=== PATIENT | female | born 1990 | race Caucasian/White ===

== ENCOUNTER 2016-07-06 21:30 | Emergency (ER) | payer OTHER ==
[2016-07-06] MEDS ORDERED: IBUPROFEN 600 MG TABLET (FP) PO ONE ×2 (21:47→22:51)
--- NOTE | 2016-07-06 21:51 | PDOC ---
Rapid Medical Evaluation Chief Complaint: Toothache Time Seen by Provider: 07/06/16 21:45 Medical Evaluation: Allergies Allergy/AdvReac Type Severity Reaction Status Date / Time No Known Allergies Allergy Verified 07/06/16 21:43 Vital Signs Temp Pulse Resp BP Pulse Ox 98.7 F 61 18 110/57 99 07/06/16 21:43 07/06/16 21:43 07/06/16 21:43 07/06/16 21:43 07/06/16 21:43 07/06/16 21:49 RME Note: I have performed a brief, in-person evaluation of this patient . This patient presents with CC: severe tooth pain tonight Pertinent PE findings are: tender to area lateral upper center incisor I have ordered: motrin 600mg The patient will proceed to ED for further evaluation.
[2016-07-06 22:12] VITALS: BP 110/57; PULSE 61; TEMP 98.7; BMI 21.6
[2016-07-06] MEDS ORDERED: OXYCODONE/APAP 5/325MG COMBO TABLET PO ONE (23:09)
--- NOTE | 2016-07-06 23:15 | PDOC ---
History of Present Illness - History of Present Illness Initial Comments: 07/06/16 23:15 The patient is a 26 year old female, with no significant past medical history, who presents to the emergency department with left maxillary quadrant pain radiating to her left yazidi, left ear and left jaw since 4:30 PM today. She states she can not localize the pain to one specific tooth because she feels pain to both the upper and lower left posterior teeth. She reports drinking cold water this evening which exacerbated her pain. She denies chest pain, shortness of breath, headache and dizziness. She denies fever, chills, nausea, vomit, diarrhea and constipation. She denies dysuria, frequency, urgency and hematuria. Allergies: NKDA <Lori Huerta - Last Filed: 07/06/16 23:15> <Laney Holden - Last Filed: 07/06/16 23:55> - General Chief Complaint: Toothache Stated Complaint: LEFT SIDE FACIAL PAIN Time Seen by Provider: 07/06/16 21:45 Past History <Lori Huerta - Last Filed: 07/06/16 23:15> - Past Medical History Other medical history: denies - Immunization History Immunization Up to Date: Yes - Psycho/Social/Smoking Cessation Hx Suicidal Ideation: No Smoking History: Current every day smoker Number of Cigarettes Smoked Daily: 5 Information on smoking cessation initiated: No Hx Alcohol Use: No Drug/Substance Use Hx: No Substance Use Type: None <Laney Holden - Last Filed: 07/06/16 23:55> - Past Medical History Allergies/Adverse Reactions: Allergies Allergy/AdvReac Type Severity Reaction Status Date / Time No Known Allergies Allergy Verified 07/06/16 21:43 Home Medications: Ambulatory Orders Ibuprofen [Motrin -] 600 mg PO TID PRN #21 tablet 07/06/16 Review of Systems - Review of Systems Able to Perform ROS?: Yes Comments:: 07/06/16 23:16 CONSTITUTIONAL: Absent: fever, no chills, no fatigue EYES: Absent: visual changes ENT: (+) left sided dental pain. Absent: ear pain, no sore throat CARDIOVASCULAR: Absent: chest pain, no palpitations RESPIRATORY: Absent: cough, no SOB GI: Absent: abdominal pain, no nausea, no vomiting, no constipation, no diarrhea GENITOURINARY: Absent: dysuria, no frequency, no hematuria MUSCULOSKELETAL: Absent: back pain, no arthralgia, no myalgia SKIN: Absent: rash NEURO: Absent: headache <Lori Huerta - Last Filed: 07/06/16 23:15> *Physical Exam - Vital Signs Last Vital Signs Temp Pulse Resp BP Pulse Ox 98.7 F 61 18 110/57 99 07/06/16 21:43 07/06/16 21:43 07/06/16 21:43 07/06/16 21:43 07/06/16 21:43 - Physical Exam Comments: 07/06/16 23:17 GENERAL: Well-appearing, well-nourished. No apparent distress. HEENT: (+) sensitivity to percussion at 2nd premolar and 1st premolar, buccal vestibule reproducible pain, amalgam, #16 and 17 fully erupted, No sign of ludwigs, no fluctuance, no lesions, Normocephalic, atraumatic. PERRL, EOM intact. SKIN: Warm, dry. No rash. No lesions. NEUROLOGICAL: No focal neurological deficits. <Lori Huerta - Last Filed: 07/06/16 23:15> - Vital Signs Last Vital Signs Temp Pulse Resp BP Pulse Ox 98.7 F 61 18 110/57 99 07/06/16 21:43 07/06/16 21:43 07/06/16 21:43 07/06/16 21:43 07/06/16 21:43 <Laney Holden - Last Filed: 07/06/16 23:55> ED Treatment Course - ADDITIONAL ORDERS Additional order review: Laboratory Results 07/06/16 21:50 Urine HCG, Qual Negative - Medications Given in the ED: ED Medications Discontinued Medications Generic Name Dose Route Start Last Admin Trade Name Freq PRN Reason Stop Dose Admin Ibuprofen 600 mg 07/06/16 21:47 07/06/16 22:52 Motrin - PO 07/06/16 21:48 600 mg ONCE ONE Administration <Lori Huerta - Last Filed: 07/06/16 23:15> - ADDITIONAL ORDERS Additional order review: Laboratory Results 07/06/16 21:50 Urine HCG, Qual Negative - Medications Given in the ED: ED Medications Discontinued Medications Generic Name Dose Route Start Last Admin Trade Name Freq PRN Reason Stop Dose Admin Ibuprofen 600 mg 07/06/16 21:47 07/06/16 22:52 Motrin - PO 07/06/16 21:48 600 mg ONCE ONE Administration <Laney Holden - Last Filed: 07/06/16 23:55> *DC/Admit/Observation/Transfer - Attestations Scribe Attestion: 07/06/16 23:19 Documentation prepared by Lori Huerta, acting as medical engineer for Laney Holden MD <Lori Huerta - Last Filed: 07/06/16 23:15> <Laney Holden - Last Filed: 07/06/16 23:55> Diagnosis at time of Disposition: Toothache - Discharge Dispostion Disposition: HOME Condition at time of disposition: Stable - Prescriptions Prescriptions: Ibuprofen [Motrin -] 600 mg PO TID PRN #21 tablet PRN Reason: For Toothache - Patient Instructions Printed Discharge Instructions: DI for Dental Pain Additional Instructions: please call your dentist and make an appointment this week
[2016-07-06] MEDS ORDERED: OXYCODONE/APAP 5/325MG COMBO TABLET ONE (23:19)
== END 2016-07-07 00:04 | disposition home or self-care (01) ==
LOC: JER 21:30
DX: K08.89 Other specified disorders of teeth and supporting structures (principal); F17.210 Nicotine dependence, cigarettes, uncomplicated
CPT/HCPCS: 84703; 99282-25

== ENCOUNTER 2017-08-25 11:49 | Emergency (ER) | payer OTHER ==
[2017-08-25 12:22] VITALS: BP 120/74; PULSE 72; TEMP 98.2; BMI 23.1
--- NOTE | 2017-08-25 13:42 | PDOC ---
History of Present Illness - General Chief Complaint: Cold Symptoms Stated Complaint: CONGESTION, FEVER Time Seen by Provider: 08/25/17 13:26 History Source: Patient Exam Limitations: No Limitations - History of Present Illness Initial Comments: 08/25/17 13:43 This is a 27-year-old woman without significant past medical history who presents emergency Department with 4 days of fevers, moist cough, sore throat, nasal congestion. Patient states her symptoms started on Tuesday 08/22. She's been trying [id number] nasal decongestants and antipyretics with good relief. Patient states she had one episode of vomiting this morning which was nonbilious nonbloody. Patient states she recently quit smoking approximately 2 months ago. Past History - Past Medical History Allergies/Adverse Reactions: Allergies Allergy/AdvReac Type Severity Reaction Status Date / Time No Known Allergies Allergy Verified 08/25/17 12:19 Home Medications: Ambulatory Orders NK [No Known Home Medication] 08/25/17 COPD: No DVT: No Dementia: No - Immunization History Immunization Up to Date: Yes - Suicide/Smoking/Psychosocial Hx Smoking History: Former smoker Have you smoked in the past 12 months: No Number of Cigarettes Smoked Daily: 5 If you are a former smoker, when did you quit?: 2M Information on smoking cessation initiated: No Hx Alcohol Use: No Drug/Substance Use Hx: No Substance Use Type: None Review of Systems - Review of Systems Able to Perform ROS?: Yes Is the patient limited [place] proficient: No Constitutional: Yes: See HPI HEENTM: Yes: See HPI Respiratory: Yes: See HPI Cardiac (ROS): No: Symptoms Reported ABD/GI: Yes: See HPI : No: Symptoms Reported Musculoskeletal: No: Symptoms Reported Integumentary: No: Symptoms Reported Neurological: No: Symptoms reported Endocrine: No: Symptoms Reported Hematologic/Lymphatic: No: Symptoms Reported *Physical Exam - Vital Signs Last Vital Signs Temp Pulse Resp BP Pulse Ox 98.2 F 72 18 120/74 99 08/25/17 12:19 08/25/17 12:19 08/25/17 12:19 08/25/17 12:19 08/25/17 12:19 - Physical Exam General Appearance: Yes: Appropriately Dressed. No: Apparent Distress HEENT: positive: Pharynx Normal, Pharyngeal Erythema, Nasal Congestion, Sinus Tenderness, Other (Bilateral retractions noted to TMs). negative: Tonsillar Exudate, Tonsillar Erythema, Rhinorrhea, TM Bulging, TM Dull, TM Erythema Neck: positive: Trachea midline, Supple Respiratory/Chest: positive: Lungs Clear, Normal Breath Sounds. negative: Respiratory Distress, Accessory Muscle Use Cardiovascular: positive: Regular Rhythm, Regular Rate, S1, S2. negative: Murmur Gastrointestinal/Abdominal: positive: Normal Bowel Sounds, Soft. negative: Tender Musculoskeletal: positive: Normal Inspection. negative: CVA Tenderness Extremity: positive: Normal Capillary Refill, Normal Inspection, Normal Range of Motion Integumentary: positive: Normal Color, Dry, Warm Neurologic: positive: Alert, Normal Response Medical Decision Making - Medical Decision Making 08/25/17 13:46 A/P: 27-year-old female without medical history with 4 days of upper respiratory symptoms TMs with retractions noted bilaterally Maxillary sinus tenderness to palpation Oropharynx with erythema 2+ tonsils present no erythema or exudate Lungs clear to auscultation bilaterally Abdomen soft nontender nondistended. Symptoms consistent with upper respiratory illness. Given symptoms started 4 days ago I will defer influenza testing at this time is treatment will not change. This is explained to the patient who verbalized understanding. Patient instructed to continue symptomatically treatment and to follow-up with Dr. mancilla symptoms are not resolving within the next 5 days. *DC/Admit/Observation/Transfer Diagnosis at time of Disposition: Upper respiratory infection, viral - Discharge Dispostion Disposition: HOME Condition at time of disposition: Stable Admit: No - Referrals Referrals: Tito Mancilla MD [Staff Physician] - - Patient Instructions Printed Discharge Instructions: DI for Viral Upper Respiratory Infection -- Adult Additional Instructions: Rest, drink lots of fluids: Teas, water, soups, Pedialyte Saltwater gargles Steamy showers/seem to face break up mucus Avoid contact with others until fevers and cough resolved Lots of handwashing and good hygiene Continue [id number] medications for symptomatic relief Tylenol or Motrin for fever and pain Followup with private physician in one to 2 days as needed Return to emergency department for worsened symptoms, fevers, dehydration - Post Discharge Activity Forms/Work/School Notes: Back to Work
== END 2017-08-25 13:46 | disposition home or self-care (01) ==
LOC: JERFT 11:49
DX: J06.9 Acute upper respiratory infection, unspecified (principal); B97.89 Other viral agents as the cause of diseases classified elsewhere
CPT/HCPCS: 99281-25

== ENCOUNTER 2017-10-27 22:54 | Emergency (ER) | payer OTHER ==
[2017-10-27 23:13] VITALS: BP 115/59; PULSE 63; TEMP 97.8; BMI 23.6
--- NOTE | 2017-10-27 23:53 | PDOC ---
History of Present Illness - General History Source: Patient Exam Limitations: No Limitations - History of Present Illness Initial Comments: 10/28/17 00:13 The patient is a 27 year old female, with no significant past medical history, who presents to the ED complaining of chest pain and cough over the past 2 days. She describes her chest pain as ranging from mild to moderate, with radiation to the left breast. She denies any modifying factors. She notes that she works in the [place] and was off for the past 2 days, when she developed this pain. She denies any discharge from the nipple. She notes that sometimes she feels as if her heart is racing. She reports a dry cough for the past week. The patient denies shortness of breath, headache or dizziness. Denies fever, chills, nausea, vomiting, diarrhea and constipation. Denies dysuria, frequency, urgency and hematuria. LMP: 2 weeks ago Allergies: None Past surgical history: None reported Social History: Cigarette use (10 daily). No drug use reported <Theron Salomon - Last Filed: 10/28/17 00:12> <Haylee Holt - Last Filed: 10/28/17 01:36> - General Chief Complaint: Chest Pain Stated Complaint: CHEST PAIN Time Seen by Provider: 10/27/17 23:39 Past History <Theron Salomon - Last Filed: 10/28/17 00:12> - Past Medical History COPD: No DVT: No Dementia: No - Immunization History Immunization Up to Date: Yes - Suicide/Smoking/Psychosocial Hx Smoking History: Current every day smoker Have you smoked in the past 12 months: No Number of Cigarettes Smoked Daily: 5 If you are a former smoker, when did you quit?: 2M Information on smoking cessation initiated: Yes 'Breaking Loose' booklet given: 10/27/17 Hx Alcohol Use: No Drug/Substance Use Hx: No Substance Use Type: None <Haylee Holt - Last Filed: 10/28/17 01:36> - Past Medical History Allergies/Adverse Reactions: Allergies Allergy/AdvReac Type Severity Reaction Status Date / Time No Known Allergies Allergy Verified 08/25/17 12:19 Home Medications: Ambulatory Orders Albuterol Sulfate Inhaler - [Ventolin HFA Inhaler -] 1 - 2 inh PO QID PRN #1 inhaler 10/28/17 Ibuprofen [Motrin -] 600 mg PO TID PRN #21 tablet 10/28/17 Inhaler, Assist Devices [Space Chamber Plus] 1 each QID PRN #1 spacer Review of Systems - Review of Systems Able to Perform ROS?: Yes Comments:: 10/28/17 00:13 GENERAL/CONSTITUTIONAL: No fever or chills. No weakness. HEAD, EYES, EARS, NOSE AND THROAT: No change in vision. No ear pain or discharge. No sore throat. GASTROINTESTINAL: No nausea, vomiting, diarrhea or constipation. GENITOURINARY: No dysuria, frequency, or change in urination. CARDIOVASCULAR: (+) Chest pain. No shortness of breath. RESPIRATORY: (+) Cough. No wheezing, or hemoptysis. MUSCULOSKELETAL: No joint or muscle swelling or pain. No neck or back pain. SKIN: No rash NEUROLOGIC: No headache, vertigo, loss of consciousness, or change in strength/ sensation. ENDOCRINE: No increased thirst. No abnormal weight change. HEMATOLOGIC/LYMPHATIC: No anemia, easy bleeding, or history of blood clots. ALLERGIC/IMMUNOLOGIC: No hives or skin allergy. <Theron Salomon - Last Filed: 10/28/17 00:12> *Physical Exam - Vital Signs Last Vital Signs Temp Pulse Resp BP Pulse Ox 97.8 F 63 20 115/59 100 10/27/17 23:10 10/27/17 23:10 10/27/17 23:10 10/27/17 23:10 10/27/17 23:10 - Physical Exam Comments: 10/28/17 00:12 Constitutional: Awake, alert, oriented. No acute distress. Head: Normocephalic. Atraumatic Eyes: PERRL. EOMI. Conjunctivae are not pale. ENT: Mucous membranes are moist and intact. Posterior pharynx without exudates or erythema. Uvula midline. Neck: Supple. Full ROM. No lymphadenopathy. No thyromegaly. Cardiovascular: Regular rate. Regular rhythm. S1, S2 regular. Distal pulses are 2+ and symmetric. Pulmonary/Chest: (+) Anterior chest wall tenderness producing her pain. Soft expiratory wheezing on the right base. Abdominal: Soft and non-distended. There is no tenderness. No rebound, guarding or rigidity. No organomegaly. No palpable masses. Good bowel sounds. Back: No CVA tenderness. Musculoskeletal: No edema. No cyanosis. No clubbing. Full range of motion in all extremities. Nocalf tenderness. Radial/pedal pulses are intact and 2+ bilaterally Skin: (+) Pierced nipples, upper right eye piercing and upper lip piercing. Skin is warm and dry. No petechiae. No purpura. Neurological: Alert and oriented to person, place, and time. Cranial nerves II -XII are grossly intact. Normal speech. Strength is grossly symmetric. No sensory deficits. Psychiatric: Good eye contact. Normal interaction, affect and behavior. <Theron Salomon - Last Filed: 10/28/17 00:12> - Vital Signs Last Vital Signs Temp Pulse Resp BP Pulse Ox 97.8 F 63 20 115/59 100 10/27/17 23:10 10/27/17 23:10 10/27/17 23:10 10/27/17 23:10 10/27/17 23:10 <Haylee Holt - Last Filed: 10/28/17 01:36> Heart Score/ECG Review - ECG Intrepretation Comment:: 10/28/17 00:10 sinus at 65, nl axis, nl interval, no acute st/t wave findings <Haylee Holt - Last Filed: 10/28/17 01:36> ED Treatment Course - LABORATORY CBC & Chemistry Diagram: 10/28/17 00:35 10/28/17 00:35 <Haylee Holt - Last Filed: 10/28/17 01:36> Medical Decision Making - Medical Decision Making 10/28/17 00:05 a/p: 27yo female with R sided anterior chest wall ttp -suspect pleurisy from recent influenza vs costocondritis -will send labs, pt with palpitations - will send dimer and tsh -will monitor and reassess -iv toradol if hcg negative -pt is nontoxic in appearance. 10/28/17 01:29 dimer negative tsh wnl labs reviewed and h/h stable mildly elevated wbc - without a shift 10/28/17 01:30 pt states feeling better 10/28/17 01:32 cxr clear suspect pleurisy with anterior chest wall pain neb improved breathing - no longer wheezing toradol improved cp. will give work note stable for dc to home will send rx for albuterol and motrin to pharmacy <Haylee Holt - Last Filed: 10/28/17 01:36> *DC/Admit/Observation/Transfer - Attestations Scribe Attestion: 10/28/17 00:12 Documentation prepared by Theron Salomon, acting as medical planner for Haylee Holt DO <Theron Salomon - Last Filed: 10/28/17 00:12> - Discharge Dispostion Decision to Admit order: No - Attestations Physician Attestion: 10/28/17 01:36 I, Dr. Haylee Holt DO, attest that this document has been prepared under my direction and personally reviewed by me in its entirety. I further attest, that it accurately reflects all work, treatment, procedures and medical decision -making performed by me. <Haylee Holt - Last Filed: 10/28/17 01:36> Diagnosis at time of Disposition: Anterior chest wall pain - Discharge Dispostion Disposition: HOME Condition at time of disposition: Stable - Prescriptions Prescriptions: Albuterol Sulfate Inhaler - [Ventolin HFA Inhaler -] 1 - 2 inh PO QID PRN #1 inhaler PRN Reason: Shortness Of Breath Ibuprofen [Motrin -] 600 mg PO TID PRN #21 tablet PRN Reason: Pain Inhaler, Assist Devices [Space Chamber Plus] 1 each MC QID PRN #1 spacer PRN Reason: Shortness Of Breath - Referrals Referrals: Tito Barton MD [Staff Physician] - - Patient Instructions Printed Discharge Instructions: DI for Atypical Chest Pain Additional Instructions: Please take all medication as prescribed. Please return to the ED with any further concerns or complaints. Please follow up with your PMD in 2-3 days. - Post Discharge Activity Forms/Work/School Notes: Back to Work
[2017-10-27] MEDS ORDERED: ALBUTEROL SO4 2.5/IPRATROPIUM 0.5 INH SOL 3 ML VIAL.NEB. NEB ONE (23:54)
[2017-10-27] MEDS ORDERED: SODIUM CHLORIDE 0.9% 1000 ML INFUS.BAG IV ONE (23:54)
[2017-10-27] MEDS ORDERED: KETOROLAC TROMETHAMINE 30 MG/1 ML VIAL IVPUSH ONE (23:54)
[2017-10-28] MEDS ORDERED: ACETAMINOPHEN 1000 MG/100 ML VIAL (NON FORMULARY) IVPB ONE (00:32)
[2017-10-28 00:46] LABS: BASO % 0.4 % (0-2.0); EOS % 0.8 % (0-4.5); HEMATOCRIT 40.1 % (32.4-45.2); HEMOGLOBIN 13.1 GM/dL (10.7-15.3); LYMPH % 27.1 % (8-40); MCH 29.9 pg (25.7-33.7); MCHC 32.6 g/dl (32.0-36.0); MEAN CELL VOLUME 91.8 fl (80-96); MEAN PLT VOLUME 8.5 fl (7.5-11.1); MONO % 9.3 % (3.8-10.2); NEUT % 62.4 % (42.8-82.8); PLATELET COUNT 234 K/MM3 (134-434); RBC 4.37 M/mm3 (3.60-5.2); RDW 13.3 % (11.6-15.6); WHITE BLOOD COUNT 11.1 K/mm3 (4.0-10.0)
[2017-10-28] MEDS ORDERED: ALBUTEROL SO4 2.5/IPRATROPIUM 0.5 INH SOL 3 ML VIAL.NEB. NEB ONE (00:55)
[2017-10-28] MEDS ORDERED: ACETAMINOPHEN INJECTION 100 ML IVPB ONE (00:56)
[2017-10-28] MEDS ORDERED: KETOROLAC TROMETHAMINE 30 MG/1 ML VIAL ONE (00:56)
[2017-10-28 01:16] LABS: ALBUMIN 4.2 g/dl (3.4-5.0); ANION GAP 7 (8-16); BILIRUBIN,TOTAL 0.4 mg/dL (0.2-1.0); BLOOD UREA NITROGEN 18 mg/dL (7-18); CALCIUM 8.6 mg/dL (8.5-10.1); CHLORIDE 107 mmol/L (98-107); CO2 27 mmol/L (21-32); CREATININE 0.6 mg/dL (0.55-1.02); GLUCOSE,RANDOM 76 mg/dL (74-106); POTASSIUM 3.8 mmol/L (3.5-5.1); SGOT/AST 26 U/L (15-37); SGPT/ALT 26 U/L (12-78); SODIUM 141 mmol/L (136-145); TOT PROT 6.9 g/dl (6.4-8.2)
[2017-10-28 01:17] LABS: ALK PHOS 37 U/L (45-117); LIPASE 272 U/L (73-393)
--- NOTE | 2017-10-28 13:08 | EKG ---
Test Reason : Blood Pressure : / mmHG Vent. Rate : 065 BPM Atrial Rate : 065 BPM P-R Int : 156 ms QRS Dur : 092 ms QT Int : 412 ms P-R-T Axes : 053 080 068 degrees QTc Int : 428 ms NORMAL SINUS RHYTHM NORMAL ECG NO PREVIOUS ECGS AVAILABLE Confirmed by CRISTHIAN BARTHOLOMEW MD ([id number]) on 10/28/2017 1:07:55 PM Referred By: Confirmed By:CRISTHIAN BARTHOLOMEW MD
== END 2017-10-28 01:39 | disposition home or self-care (01) ==
LOC: JER 22:54
PROC: 3E0F7GC Introduction of Other Therapeutic Substance into Respiratory Tract, Via Natural or Artificial Opening (ICD-10-PCS; principal; 2017-10-27)
PROC: 3E033NZ Introduction of Analgesics, Hypnotics, Sedatives into Peripheral Vein, Percutaneous Approach (ICD-10-PCS; 2017-10-27)
PROC: 3E0333Z Introduction of Anti-inflammatory into Peripheral Vein, Percutaneous Approach (ICD-10-PCS; 2017-10-27)
DX: R07.89 Other chest pain (principal); F17.210 Nicotine dependence, cigarettes, uncomplicated
CPT/HCPCS: 36415; 71046-TC-FY; 80053; 83690; 84443; 84703; 85025; 85379; 93005; 93010; 99281-25; J0131; J7030; J7620